=== PATIENT | male | born 1980 | race Caucasian/White ===

== ENCOUNTER 2016-10-25 09:50 | Emergency (ER) | payer OTHER ==
[2016-10-25 09:58] VITALS: TEMP 98.2; BMI 25.8
[2016-10-25] MEDS ORDERED: IBUPROFEN 400 MG TABLET (FP) PO ONE (10:30)
[2016-10-25] MEDS ORDERED: IBUPROFEN 600 MG TABLET (FP) PO ONE (10:30)
--- NOTE | 2016-10-25 10:30 | PDOC ---
History of Present Illness <Caitlin Diaz - Last Filed: 10/25/16 10:38> - General History Source: Patient Exam Limitations: No Limitations - History of Present Illness Initial Comments: 10/25/16 10:53 The patient is a 36 year old male with no significant past medical history who presents to the emergency department with low back pain. 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 His pain is localized to the left upper and left lower back. He denies any other injuries. His pain does not radiate. The pain is worse with movement. <Cammie Calderon - Last Filed: 10/25/16 10:54> - General Chief Complaint: Back Pain Stated Complaint: LOWER BACK PAIN Time Seen by Provider: 10/25/16 10:17 Past History - Past Medical History Other medical history: denies - Immunization History Immunization Up to Date: Yes - Psycho/Social/Smoking Cessation Hx Anxiety: No Suicidal Ideation: No Smoking History: Never smoked Number of Cigarettes Smoked Daily: 0 Cigars Per Day: 0 Information on smoking cessation initiated: No Hx Alcohol Use: No Drug/Substance Use Hx: No Substance Use Type: Alcohol <Caitlin Diaz - Last Filed: 10/25/16 10:38> <Cammie Calderon - Last Filed: 10/25/16 10:54> - Past Medical History Allergies/Adverse Reactions: Allergies Allergy/AdvReac Type Severity Reaction Status Date / Time No Known Allergies Allergy Verified 10/25/16 09:58 Home Medications: Ambulatory Orders Methocarbamol [Robaxin -] 500 mg PO BID #14 tablet 08/18/15 Naproxen [Naprosyn -] 500 mg PO BID #14 tablet 08/18/15 Ibuprofen [Motrin -] 600 mg PO TID #21 tablet 10/25/16 Methocarbamol [Robaxin -] 500 mg PO HS PRN #4 tablet 10/25/16 Review of Systems - Review of Systems Able to Perform ROS?: Yes Comments:: 10/25/16 10:54 GENERAL/CONSTITUTIONAL: No fever or chills. No weakness. HEAD, EYES, EARS, NOSE AND THROAT: No change in vision. No ear pain or discharge. No sore throat. MUSCULOSKELETAL: +Upper and lower back pain. No joint or muscle swelling or pain. No neck pain. SKIN: No rash NEUROLOGIC: No headache, vertigo, loss of consciousness, or change in strength/ sensation. ENDOCRINE: No increased thirst. No abnormal weight change. HEMATOLOGIC/LYMPHATIC: No anemia, easy bleeding, or history of blood clots. ALLERGIC/IMMUNOLOGIC: No hives or skin allergy. <KvngCammie - Last Filed: 10/25/16 10:54> *Physical Exam - Vital Signs Last Vital Signs Temp Pulse Resp BP Pulse Ox 98.2 F 105 H 20 138/75 98 10/25/16 09:54 10/25/16 09:54 10/25/16 09:54 10/25/16 09:54 10/25/16 09:54 <Caitlin Diaz - Last Filed: 10/25/16 10:38> - Vital Signs Last Vital Signs Temp Pulse Resp BP Pulse Ox 98.2 F 105 H 20 138/75 98 10/25/16 09:54 10/25/16 09:54 10/25/16 09:54 10/25/16 09:54 10/25/16 09:54 - Physical Exam Comments: 10/25/16 10:54 GENERAL: Awake, alert, and fully oriented, in no acute distress HEAD: No signs of trauma EYES: PERRLA, EOMI, sclera anicteric, conjunctiva clear ENT: Auricles normal inspection, hearing grossly normal, nares patent, oropharynx clear without exudates. Moist mucosa MUSCULOSKELETAL: +Tenderness to palpation in the left rhomboid region and bilateral lumbar paraspinal region. No midline tenderness. EXTREMITIES: Normal range of motion, no edema. No clubbing or cyanosis. No cords, erythema, or tenderness NEUROLOGICAL: Cranial nerves II through XII grossly intact. Normal speech, normal gait SKIN: Warm, Dry, normal turgor, no rashes or lesions noted. <KvngCammie - Last Filed: 10/25/16 10:54> *DC/Admit/Observation/Transfer - Discharge Dispostion Admit: No <Caitlin Diaz - Last Filed: 10/25/16 10:38> - Attestations Scribe Attestion: 10/25/16 10:31 Documentation prepared by Cammie Calderon, acting as certified medical dosimetrist for Caitlin Diaz MD. <Cammie Calderon - Last Filed: 10/25/16 10:54> Diagnosis at time of Disposition: Back sprain or strain Left shoulder strain Qualifiers: Encounter type: initial encounter Qualified Code(s): S46.912A - Strain of unspecified muscle, fascia and tendon at shoulder and upper arm level, left arm , initial encounter - Discharge Dispostion Disposition: HOME Condition at time of disposition: Stable - Prescriptions Prescriptions: Ibuprofen [Motrin -] 600 mg PO TID #21 tablet Methocarbamol [Robaxin -] 500 mg PO HS PRN #4 tablet PRN Reason: Muscle Spasms - Patient Instructions Printed Discharge Instructions: DI for Back Strain or Sprain
[2016-10-25 11:16] VITALS: BP 122/89; PULSE 89
== END 2016-10-25 11:16 | disposition home or self-care (01) ==
LOC: JER 09:50
DX: S46.912A Strain of unspecified muscle, fascia and tendon at shoulder and upper arm level, left arm, initial encounter (principal); X58.XXXA Exposure to other specified factors, initial encounter; Y93.9 Activity, unspecified; Y92.9 Unspecified place or not applicable; Y99.0 Civilian activity done for income or pay
CPT/HCPCS: 99282-25

== ENCOUNTER 2021-01-28 13:56 | Emergency (ER) | payer OTHER ==
[2021-01-28 14:03] VITALS: BP 107/70; PULSE 84; TEMP 98.1; BMI 25.1
[2021-01-28] MEDS ORDERED: KETOROLAC TROMETHAMINE 60 MG/2 ML VIAL IM ONE (15:13)
[2021-01-28] MEDS ORDERED: KETOROLAC TROMETHAMINE 30 MG/1 ML VIAL ONE (15:17)
== END 2021-01-28 15:23 | disposition home or self-care (01) ==
LOC: MERGE 13:56 → JERFT 13:56
PROC: 3E0233Z Introduction of Anti-inflammatory into Muscle, Percutaneous Approach (ICD-10-PCS; principal; 2021-01-28)
DX: M25.521 Pain in right elbow (principal)
CPT/HCPCS: 99284-25

== ENCOUNTER 2021-06-24 14:01 | Emergency (ER) | payer OTHER ==
[2021-06-24 14:11] VITALS: BP 112/81; PULSE 78; TEMP 98; BMI 25.1
[2021-06-24] MEDS ORDERED: IBUPROFEN 600 MG TABLET (FP) PO ONE ×2 (15:08→15:11)
== END 2021-06-24 15:20 | disposition home or self-care (01) ==
LOC: JERFT 14:01
DX: M62.830 Muscle spasm of back (principal)
CPT/HCPCS: 99283-25

== ENCOUNTER 2023-02-16 20:39 | Emergency (ER) | payer OTHER ==
[2023-02-16 20:48] VITALS: BP 106/67; PULSE 70; RESP 18; TEMP 98; BMI 25.1
== END 2023-02-16 22:28 | disposition home or self-care (01) ==
LOC: JERFT 20:39
DX: S86.911A Strain of unspecified muscle(s) and tendon(s) at lower leg level, right leg, initial encounter (principal); M25.561 Pain in right knee; X50.0XXA Overexertion from strenuous movement or load, initial encounter; Y93.89 Activity, other specified; Y92.9 Unspecified place or not applicable
CPT/HCPCS: 99282-25

== ENCOUNTER 2024-06-22 17:06 | Emergency (ER) | payer OTHER ==
[2024-06-22 17:10] VITALS: BP 119/73; PULSE 69; RESP 18; TEMP 98.4; BMI 25.8
[2024-06-22] MEDS ORDERED: KETOROLAC TROMETHAMINE 30 MG/1 ML VIAL ONE (17:27)
[2024-06-22] MEDS ORDERED: LIDOCAINE 4% PATCH TP ONE (17:27)
[2024-06-22] MEDS ORDERED: ACETAMINOPHEN 500 MG TABLET (FP) ONE (17:28)
[2024-06-22] MEDS: LIDOCAINE 4% PATCH TP ONE (17:34)
[2024-06-22] MEDS: ACETAMINOPHEN 500 MG TABLET (FP) PO ONE (17:34)
[2024-06-22] MEDS: KETOROLAC TROMETHAMINE 30 MG/1 ML VIAL IM ONE (17:35)
[2024-06-22] MEDS ORDERED: LIDOCAINE PATCH REMOVAL MC SCH (22:00)
== END 2024-06-22 17:45 | disposition home or self-care (01) ==
LOC: JER 17:06
PROC: 3E0133Z Introduction of Anti-inflammatory into Subcutaneous Tissue, Percutaneous Approach (ICD-10-PCS; principal; 2024-06-22)
DX: M62.830 Muscle spasm of back (principal); M54.50 Low back pain, unspecified
CPT/HCPCS: 99284-25